=== PATIENT | female | born 1995 | race Caucasian/White ===

== ENCOUNTER 2017-06-13 19:54 | Emergency (ER) | payer BC ==
[2017-06-13 20:19] VITALS: BP 113/65
[2017-06-13] MEDS ORDERED: Sulfamethox/Trimethoprim DS 800/160* TAB PO ONE (21:05)
[2017-06-13] MEDS ORDERED: Phenazopyridine TAB* 100 MG PO ONE (21:05)
--- NOTE | 2017-06-13 21:20 | UC ---
Complaint Female HPI - HPI Summary HPI Summary: ONE DAY OF FREQUENCY, BURNING, URGENCY. NO FEVER. NO ABDOMINAL PAIN. NO BACK PAIN. - History Of Current Complaint Chief Complaint: [facility] Stated Complaint: UTI Time Seen by Provider: 06/13/17 20:14 Hx Obtained From: Patient Hx Last Menstrual Period: 05/24/17 Onset/Duration: Sudden Onset, Lasting Days Timing: Intermittent Severity Initially: Mild Severity Currently: Mild Character: Dull, Burning Aggravating Factor(s): Urination Associated Signs And Symptoms: Negative: Fever, Back Pain - Risk Factors Ectopic Risk Factor: Negative Ovarian Torsion Risk Factor: Negative - Allergies/Home Medications Allergies/Adverse Reactions: Allergies Allergy/AdvReac Type Severity Reaction Status Date / Time No Known Allergies Allergy Verified 06/13/17 20:19 Home Medications: Home Medications Escitalopram Oxalate [Lexapro 10 mg] 15 mg PO DAILY 06/13/17 [History Confirmed 06/13/17] Lisdexamfetamine Dimesylate [Vyvanse] 30 mg PO 06/13/17 [History] Norethin Acet & Estrad-Fe [Junel 09/12 1-20 mg-Mcg] 1 tab PO 06/13/17 [History ] PMH/Surg Hx/FS Hx/Imm Hx Previously Healthy: Yes - Surgical History Surgical History: None - Family History Known Family History: Negative: Respiratory Disease - Social History Occupation: Student Alcohol Use: Weekly Substance Use Type: None Smoking Status (MU): Never Smoked Tobacco Review of Systems Constitutional: Negative Skin: Negative Eyes: Negative ENT: Negative Respiratory: Negative Cardiovascular: Negative Gastrointestinal: Negative Genitourinary: Dysuria, Frequency, Urgency Motor: Negative Neurovascular: Negative Musculoskeletal: Negative Neurological: Negative Psychological: Negative Is Patient Immunocompromised?: No All Other Systems Reviewed And Are Negative: Yes Physical Exam Triage Information Reviewed: Yes Appearance: Well-Appearing, No Pain Distress, Well-Nourished Vital Signs: Initial Vital Signs Temp 98.1 F 06/13/17 20:15 Pulse 90 06/13/17 20:15 Resp 19 06/13/17 20:15 BP 113/65 06/13/17 20:15 Pulse Ox 100 06/13/17 20:15 Vital Signs Reviewed: Yes Eye Exam: Normal ENT Exam: Normal ENT: Positive: Normal ENT inspection, TMs normal Dental Exam: Normal Neck exam: Normal Neck: Positive: Supple, Nontender, No Lymphadenopathy Respiratory Exam: Normal Respiratory: Positive: Chest non-tender, Lungs clear, Normal breath sounds, No respiratory distress Cardiovascular Exam: Normal Cardiovascular: Positive: RRR, No Murmur, Pulses Normal Abdominal Exam: Normal Abdomen Description: Positive: Nontender, No Organomegaly. Negative: CVA Tenderness (R), CVA Tenderness (L) Musculoskeletal Exam: Normal Musculoskeletal: Positive: Strength Intact, ROM Intact, No Edema Neurological Exam: Normal Psychological Exam: Normal Skin Exam: Normal Complaint Female Dx - Differential Dx/Diagnosis Differential Diagnosis/HQI/PQRI: Urinary Tract Infection Provider Diagnoses: URINARY TRACT INFECTION Discharge - Discharge Plan Condition: Stable Disposition: HOME Prescriptions: Phenazopyridine TAB* [Pyridium 100 mg TAB*] 100 mg PO TID #15 tab Sulfamethox/Trimethoprim DS* [Bactrim DS 800/160 TAB*] 1 tab PO BID #10 tab Patient Education Materials: Urinary Tract Infection in Women (ED) Referrals: [facility]IAN REFERRAL [Outside] No Primary Care Phys,NOPCP [Primary Care Provider] -
--- NOTE | 2017-06-15 17:33 | UC ---
Progress - Progress Note Progress Note: Urine culture is no growth. Pt is on Bactrim. She had blood on her urine micro. She should stop the Bactrim. She should have definite follow up regarding the blood in the urine. She was given PCP referral. If she can't be seen in a timely fashion within 3 weeks, she should return to urgent care, and she should return to urgent care if she has new or worsening symptoms. Jamaal Hernandez MD 06/15/17 [id number].
== END 2017-06-13 21:38 | disposition home or self-care (01) ==
LOC: UCEAST 19:54
DX: N39.0 Urinary tract infection, site not specified (principal); Z32.02 Encounter for pregnancy test, result negative
CPT/HCPCS: 81003; 84702; 87086; 99202; A9270-GY; G0463